=== PATIENT | female | born 1935 | race Caucasian/White ===

== ENCOUNTER 2020-09-09 12:37 | Observation (INO) ==
[2020-09-09 13:37] LABS: Basophils % 0.3 % (0.0-0.8); Eosinophils % 0.4 % (0.00-10.9); Hematocrit 41.4 VOL% (35.7-47.0); Hemoglobin 13.7 GM/DL (12.0-16.0); Immature Granulocytes % 0.4 %; Immature Granulocytes Absolute 0.03 #; Lymphocytes # 1.2 10*3/uL (1.4-4.0); Mean Corpuscular HGB Conc 33.1 GM/DL (32-36); Mean Corpuscular Volume 90.8 FL (87-102); Mean Platelet Volume 10.2 FL (9.6-12.0); Monocytes % 6.2 % (1.7-12.7); Neutrophils % 76.7 % (38.7-73.9); Platelet Count 287 T/CUMM (130-400); Red Blood Count 4.56 MC/CUMM (3.8-5.5); Red Cell Distribution Width 15.1 % (9.3-17.3); White Blood Count 7.3 T/CUMM (4-12)
[2020-09-09 13:48] LABS: Osmolality,Calculated 283.1 MOS/KG (273-304); Potassium 4.5 MMOL/L (3.5-5.1)
[2020-09-09] MEDS ORDERED: LABETALOL 20 MG/4 ML SYRINGE IV PRN (15:30)
[2020-09-09] MEDS ORDERED: GLUCAGON 1 MG VIAL IM PRN (15:35)
[2020-09-09] MEDS ORDERED: DEXTROSE 50% 25 GM/50 ML VIAL IV PRN (15:35)
[2020-09-09] MEDS: ENOXAPARIN 30 MG/0.3 ML SYRINGE SUBCUT SCH (15:47)
[2020-09-09] MEDS: ASPIRIN 325 MG TABLET PO SCH (15:47)
[2020-09-09] MEDS: DISOPYRAMIDE PHOSPHATE 150 MG PO SCH (23:20)
[2020-09-09] MEDS: MAGNESIUM OXIDE 400 MG TABLET PO SCH (23:20)
[2020-09-09] MEDS: PANTOPRAZOLE 40 MG TABLET PO SCH (23:20)
[2020-09-10 06:10] LABS: Basophils % 0.3 % (0.0-0.8); Eosinophils # 0.1 10*3/uL (0.0-0.87); Eosinophils % 1.2 % (0.00-10.9); Hematocrit 39.7 VOL% (35.7-47.0); Hemoglobin 12.8 GM/DL (12.0-16.0); Immature Granulocytes % 0.5 %; Immature Granulocytes Absolute 0.04 #; Lymphocytes # 1.7 10*3/uL (1.4-4.0); Mean Corpuscular HGB Conc 32.2 GM/DL (32-36); Mean Corpuscular Volume 92.3 FL (87-102); Mean Platelet Volume 10.4 FL (9.6-12.0); Monocytes % 8.2 % (1.7-12.7); Neutrophils % 66.8 % (38.7-73.9); Platelet Count 258 T/CUMM (130-400); Red Cell Distribution Width 14.9 % (9.3-17.3); White Blood Count 7.4 T/CUMM (4-12)
[2020-09-10 06:24] LABS: Calcium 8.9 MG/DL (8.5-10.1); Osmolality,Calculated 280.7 MOS/KG (273-304); Potassium 4.1 MMOL/L (3.5-5.1); Risk Ratio 5.39; VLDL CHOLESTEROL 41.4 MG/DL
[2020-09-10] MEDS: LEVOTHYROXINE 25 MCG TABLET PO SCH (07:26)
[2020-09-10] MEDS: PANTOPRAZOLE 40 MG TABLET PO SCH ×2 (09:47→21:04)
[2020-09-10] MEDS: DIGOXIN 0.125 MG TABLET PO SCH (09:47)
[2020-09-10] MEDS: ASPIRIN 325 MG TABLET PO SCH (09:47)
[2020-09-10] MEDS: MAGNESIUM OXIDE 400 MG TABLET PO SCH ×2 (09:47→21:04)
[2020-09-10] MEDS: METOPROLOL SUCCINATE XL 25 MG TABLET PO SCH (09:48)
[2020-09-10] MEDS: DISOPYRAMIDE PHOSPHATE 150 MG PO SCH ×3 (10:47→21:04)
[2020-09-10] MEDS: ENOXAPARIN 30 MG/0.3 ML SYRINGE SUBCUT SCH (15:55)
[2020-09-10] MEDS ORDERED: ROSUVASTATIN 10 MG TABLET PO SCH (21:00)
[2020-09-10] MEDS: OMEGA 3 ACID ETHYL ESTERS 1 GM CAPSULE PO SCH (21:04)
[2020-09-11] MEDS: LEVOTHYROXINE 25 MCG TABLET PO SCH (06:17)
[2020-09-11 06:35] LABS: Calcium 9.2 MG/DL (8.5-10.1); Osmolality,Calculated 280.7 MOS/KG (273-304); Potassium 4.3 MMOL/L (3.5-5.1)
[2020-09-11 06:39] LABS: Alanine Aminotransferase 22 U/L (13-56); Albumin 3.2 G/DL (3.4-5.0); Alkaline Phosphatase 86 U/L (45-117); Aspartate Amino Transferase 21 U/L (0-37); Bilirubin,Direct < 0.100 MG/DL (0.0-0.20); Bilirubin,Indirect 0.3 MG/DL (0.0-1.0); Bilirubin,Total < 0.39 MG/DL (0.2-1.0); Total Protein 7.3 G/DL (6.4-8.2)
[2020-09-11] MEDS ORDERED: CLOPIDOGREL 75 MG TABLET PO SCH (09:00)
[2020-09-11] MEDS ORDERED: GLIMEPIRIDE 2 MG TABLET PO SCH (09:00)
[2020-09-11] MEDS ORDERED: hydroCHLOROthiazide 12.5 MG CAPSULE PO SCH (09:00)
[2020-09-11] MEDS ORDERED: ASPIRIN EC 81 MG TABLET PO SCH (09:00)
[2020-09-11] MEDS: DIGOXIN 0.125 MG TABLET PO SCH (09:16)
[2020-09-11] MEDS: MAGNESIUM OXIDE 400 MG TABLET PO SCH (09:16)
[2020-09-11] MEDS: OMEGA 3 ACID ETHYL ESTERS 1 GM CAPSULE PO SCH (09:16)
[2020-09-11] MEDS: PANTOPRAZOLE 40 MG TABLET PO SCH (09:17)
[2020-09-11] MEDS: METOPROLOL SUCCINATE XL 25 MG TABLET PO SCH (09:17)
[2020-09-11] MEDS: DISOPYRAMIDE PHOSPHATE 150 MG PO SCH (10:16)
[2020-09-11 11:13] VITALS: BP 131/58
== END 2020-09-11 13:51 | disposition home or self-care (01) ==
LOC: N.ED 12:37 → N.EDINP 12:37 → N.3E 21:14
PROVIDERS: ADMIT Hospitalist; ATTEND Hospitalist

== ENCOUNTER 2020-11-14 09:32 | Inpatient (IN) ==
[2020-11-14] MEDS ORDERED: SODIUM CHLORIDE 0.9% 1,000 ML IV STA (10:21)
[2020-11-14] MEDS ORDERED: ONDANSETRON 4 MG/2 ML VIAL IV STA (10:21)
[2020-11-14 10:32] LABS: Basophils % 0.1 % (0.0-0.8); Eosinophils % 0.3 % (0.00-10.9); Hematocrit 20.6 VOL% (35.7-47.0); Immature Granulocytes % 0.4 %; Immature Granulocytes Absolute 0.03 #; Mean Corpuscular Volume 87.7 FL (87-102); Mean Platelet Volume 10.2 FL (9.6-12.0); Monocytes % 5.4 % (1.7-12.7); Neutrophils % 80.8 % (38.7-73.9); Platelet Count 225 T/CUMM (130-400); Red Blood Count 2.35 MC/CUMM (3.8-5.5); Red Cell Distribution Width 14.6 % (9.3-17.3); White Blood Count 7.7 T/CUMM (4-12)
[2020-11-14 10:47] LABS: Alanine Aminotransferase 26 U/L (13-56); Albumin 3.1 G/DL (3.4-5.0); Alkaline Phosphatase 73 U/L (45-117); Amylase 252 U/L (25-115); Aspartate Amino Transferase 33 U/L (0-37); Blood Urea Nitrogen 25 MG/DL (7-18); Calcium 7.7 MG/DL (8.5-10.1); Carbon Dioxide 25 MMOL/L (21-32); Glucose 248 MG/DL (74-106); Osmolality,Calculated 268.1 MOS/KG (273-304); Potassium 4.3 MMOL/L (3.5-5.1); Sodium 128 MMOL/L (136-145); Total Protein 6.2 G/DL (6.4-8.2)
[2020-11-14 10:49] LABS: Estimated Glom Filtration Rate 0 ML/MIN
[2020-11-14] MEDS ORDERED: SODIUM CHLORIDE 0.9% 1,000 ML IV PRN (11:23)
[2020-11-14] MEDS ORDERED: ONDANSETRON 4 MG/2 ML VIAL IV PRN (12:16)
[2020-11-14] MEDS ORDERED: GLUCAGON 1 MG VIAL IM PRN (12:17)
[2020-11-14] MEDS ORDERED: DEXTROSE 50% 25 GM/50 ML VIAL IV PRN (12:17)
[2020-11-14 12:44] LABS: Calcium 7.3 MG/DL (8.5-10.1); Osmolality,Calculated 268.7 MOS/KG (273-304); Potassium 4.5 MMOL/L (3.5-5.1)
[2020-11-14 12:48] LABS: Basophils % 0.2 % (0.0-0.8); Hematocrit 18.3 VOL% (35.7-47.0); Immature Granulocytes % 0.2 %; Immature Granulocytes Absolute 0.01 #; Lymphocytes # 0.8 10*3/uL (1.4-4.0); Lymphocytes % 14.8 % (21.3-54.2); Mean Corpuscular HGB Conc 32.8 GM/DL (32-36); Mean Corpuscular Volume 88.4 FL (87-102); Mean Platelet Volume 10.1 FL (9.6-12.0); Monocytes % 4.2 % (1.7-12.7); Neutrophils % 80.6 % (38.7-73.9); Red Blood Count 2.07 MC/CUMM (3.8-5.5); Red Cell Distribution Width 14.5 % (9.3-17.3); White Blood Count 5.5 T/CUMM (4-12)
[2020-11-14 13:00] LABS: Platelet Count 175 T/CUMM (130-400)
[2020-11-14] MEDS: SODIUM CHLORIDE 0.9% 1,000 ML IV SCH ×2 (14:00→21:43)
[2020-11-14] MEDS: LEVOTHYROXINE 25 MCG TABLET PO SCH (16:17)
[2020-11-14] MEDS: INSULIN LISPRO 100 UNIT/ML SUBCUT SCH (18:13)
[2020-11-14] MEDS: OMEGA 3 ACID ETHYL ESTERS 1 GM CAPSULE PO SCH (21:41)
[2020-11-14] MEDS: MULTIVITAMIN (OCUVITE) TABLET PO SCH (21:41)
[2020-11-14] MEDS: ASPIRIN EC 81 MG TABLET PO SCH (21:41)
[2020-11-14] MEDS: MAGNESIUM OXIDE 400 MG TABLET PO SCH (21:41)
[2020-11-14] MEDS: PANTOPRAZOLE 40 MG TABLET PO SCH (21:41)
[2020-11-14] MEDS: CLOPIDOGREL 75 MG TABLET PO SCH (21:41)
[2020-11-15] MEDS: INSULIN LISPRO 100 UNIT/ML SUBCUT SCH ×4 (00:56→18:40)
[2020-11-15] MEDS: LEVOTHYROXINE 25 MCG TABLET PO SCH (05:58)
[2020-11-15 06:37] LABS: Thyroid Stimulating Hormone 2.88 uIU/ml (0.358-3.74)
[2020-11-15 07:25] LABS: Basophils % 0.2 % (0.0-0.8); Immature Granulocytes % 0.4 %; Immature Granulocytes Absolute 0.02 #; Mean Platelet Volume 10.2 FL (9.6-12.0); Red Cell Distribution Width 15.5 % (9.3-17.3)
[2020-11-15 07:30] LABS: Eosinophils % 0.8 % (0.00-10.9); Hematocrit 24.3 VOL% (35.7-47.0); Lymphocytes # 1.2 10*3/uL (1.4-4.0); Lymphocytes % 23.7 % (21.3-54.2); Mean Corpuscular HGB Conc 33.7 GM/DL (32-36); Mean Corpuscular Volume 85.3 FL (87-102); Monocytes % 7.4 % (1.7-12.7); Neutrophils % 67.5 % (38.7-73.9); Platelet Count 147 T/CUMM (130-400)
[2020-11-15 07:32] LABS: Red Blood Count 2.85 MC/CUMM (3.8-5.5)
[2020-11-15 07:33] LABS: Hemoglobin 8.2 GM/DL (12.0-16.0)
[2020-11-15 08:03] LABS: Calcium 7.1 MG/DL (8.5-10.1); Osmolality,Calculated 272.8 MOS/KG (273-304); Potassium 4.3 MMOL/L (3.5-5.1)
[2020-11-15] MEDS: METOPROLOL SUCCINATE XL 25 MG TABLET PO SCH (09:01)
[2020-11-15] MEDS: DIGOXIN 0.125 MG TABLET PO SCH (09:03)
[2020-11-15] MEDS: MAGNESIUM OXIDE 400 MG TABLET PO SCH ×2 (09:05→20:36)
[2020-11-15] MEDS: CETIRIZINE 10 MG TABLET PO SCH (09:05)
[2020-11-15] MEDS: MULTIVITAMIN (OCUVITE) TABLET PO SCH ×2 (09:05→20:37)
[2020-11-15] MEDS: ASPIRIN EC 81 MG TABLET PO SCH ×2 (09:05→20:37)
[2020-11-15] MEDS: MULTIVITAMIN (BEROCCA) TABLET PO SCH (09:05)
[2020-11-15] MEDS: OMEGA 3 ACID ETHYL ESTERS 1 GM CAPSULE PO SCH ×2 (09:05→20:36)
[2020-11-15] MEDS: CYANOCOBALAMIN 500 MCG TABLET PO SCH (09:06)
[2020-11-15] MEDS: PANTOPRAZOLE 40 MG TABLET PO SCH ×2 (09:06→20:36)
[2020-11-15] MEDS: SODIUM CHLORIDE 0.9% 1,000 ML IV SCH (18:41)
[2020-11-15] MEDS: CLOPIDOGREL 75 MG TABLET PO SCH (20:36)
[2020-11-16] MEDS: INSULIN LISPRO 100 UNIT/ML SUBCUT SCH ×4 (00:30→19:09)
[2020-11-16 04:28] LABS: Basophils % 0.4 % (0.0-0.8); Eosinophils # 0.1 10*3/uL (0.0-0.87); Hemoglobin 8.1 GM/DL (12.0-16.0); Immature Granulocytes % 0.2 %; Immature Granulocytes Absolute 0.01 #; Lymphocytes # 1.7 10*3/uL (1.4-4.0); Lymphocytes % 36.7 % (21.3-54.2); Mean Corpuscular HGB Conc 32.4 GM/DL (32-36); Mean Corpuscular Volume 89.6 FL (87-102); Mean Platelet Volume 9.9 FL (9.6-12.0); Neutrophils % 52.7 % (38.7-73.9); Platelet Count 151 T/CUMM (130-400); Red Blood Count 2.79 MC/CUMM (3.8-5.5); Red Cell Distribution Width 15.9 % (9.3-17.3); White Blood Count 4.6 T/CUMM (4-12)
[2020-11-16 05:09] LABS: Calcium 7.2 MG/DL (8.5-10.1); Potassium 3.8 MMOL/L (3.5-5.1)
[2020-11-16] MEDS: LEVOTHYROXINE 25 MCG TABLET PO SCH (06:00)
[2020-11-16] MEDS: CYANOCOBALAMIN 500 MCG TABLET PO SCH (09:15)
[2020-11-16] MEDS: CETIRIZINE 10 MG TABLET PO SCH (09:15)
[2020-11-16] MEDS: DIGOXIN 0.125 MG TABLET PO SCH (09:15)
[2020-11-16] MEDS: METOPROLOL SUCCINATE XL 25 MG TABLET PO SCH (09:15)
[2020-11-16] MEDS: ASPIRIN EC 81 MG TABLET PO SCH ×2 (09:15→20:21)
[2020-11-16] MEDS: MAGNESIUM OXIDE 400 MG TABLET PO SCH ×2 (09:16→20:21)
[2020-11-16] MEDS: MULTIVITAMIN (BEROCCA) TABLET PO SCH (09:16)
[2020-11-16] MEDS: OMEGA 3 ACID ETHYL ESTERS 1 GM CAPSULE PO SCH ×2 (09:17→20:21)
[2020-11-16] MEDS: PANTOPRAZOLE 40 MG TABLET PO SCH ×2 (09:18→20:21)
[2020-11-16] MEDS: MULTIVITAMIN (OCUVITE) TABLET PO SCH ×2 (09:18→20:21)
[2020-11-16] MEDS: CLOPIDOGREL 75 MG TABLET PO SCH (20:21)
[2020-11-16] MEDS: SODIUM CHLORIDE 0.9% 1,000 ML IV SCH (20:24)
[2020-11-17] MEDS: INSULIN LISPRO 100 UNIT/ML SUBCUT SCH ×4 (00:31→18:04)
[2020-11-17 05:06] LABS: Basophils % 0.2 % (0.0-0.8); Eosinophils # 0.1 10*3/uL (0.0-0.87); Eosinophils % 2.5 % (0.00-10.9); Hematocrit 24.3 VOL% (35.7-47.0); Hemoglobin 8.2 GM/DL (12.0-16.0); Immature Granulocytes % 0.2 %; Immature Granulocytes Absolute 0.01 #; Lymphocytes # 1.3 10*3/uL (1.4-4.0); Lymphocytes % 28.7 % (21.3-54.2); Mean Corpuscular HGB Conc 33.7 GM/DL (32-36); Mean Corpuscular Volume 87.7 FL (87-102); Mean Platelet Volume 9.8 FL (9.6-12.0); Monocytes % 7.6 % (1.7-12.7); Neutrophils % 60.8 % (38.7-73.9); Platelet Count 150 T/CUMM (130-400); Red Blood Count 2.77 MC/CUMM (3.8-5.5); Red Cell Distribution Width 15.4 % (9.3-17.3); White Blood Count 4.5 T/CUMM (4-12)
[2020-11-17 05:25] LABS: Calcium 7.5 MG/DL (8.5-10.1); Potassium 3.8 MMOL/L (3.5-5.1)
[2020-11-17] MEDS: LEVOTHYROXINE 25 MCG TABLET PO SCH (06:31)
[2020-11-17] MEDS: SODIUM CHLORIDE 0.9% 1,000 ML IV SCH (07:10)
[2020-11-17] MEDS: MULTIVITAMIN (BEROCCA) TABLET PO SCH (08:41)
[2020-11-17] MEDS: DIGOXIN 0.125 MG TABLET PO SCH (08:41)
[2020-11-17] MEDS: OMEGA 3 ACID ETHYL ESTERS 1 GM CAPSULE PO SCH ×2 (08:42→21:24)
[2020-11-17] MEDS: MAGNESIUM OXIDE 400 MG TABLET PO SCH ×2 (08:42→21:24)
[2020-11-17] MEDS: CYANOCOBALAMIN 500 MCG TABLET PO SCH (08:42)
[2020-11-17] MEDS: MULTIVITAMIN (OCUVITE) TABLET PO SCH ×2 (08:42→21:24)
[2020-11-17] MEDS: CETIRIZINE 10 MG TABLET PO SCH (08:42)
[2020-11-17] MEDS: METOPROLOL SUCCINATE XL 25 MG TABLET PO SCH (08:42)
[2020-11-17] MEDS: PANTOPRAZOLE 40 MG TABLET PO SCH ×2 (08:42→21:24)
[2020-11-17] MEDS: ASPIRIN EC 81 MG TABLET PO SCH ×2 (08:43→21:24)
[2020-11-18] MEDS: INSULIN LISPRO 100 UNIT/ML SUBCUT SCH ×3 (00:07→11:07)
[2020-11-18] MEDS: SODIUM CHLORIDE 0.9% 1,000 ML IV SCH (02:51)
[2020-11-18 05:37] LABS: Basophils % 0.5 % (0.0-0.8); Eosinophils # 0.1 10*3/uL (0.0-0.87); Eosinophils % 2.3 % (0.00-10.9); Hematocrit 24.3 VOL% (35.7-47.0); Hemoglobin 7.8 GM/DL (12.0-16.0); Immature Granulocytes % 0.2 %; Immature Granulocytes Absolute 0.01 #; Lymphocytes # 1.2 10*3/uL (1.4-4.0); Lymphocytes % 26.9 % (21.3-54.2); Mean Corpuscular HGB Conc 32.1 GM/DL (32-36); Mean Corpuscular Volume 89.3 FL (87-102); Mean Platelet Volume 9.7 FL (9.6-12.0); Monocytes % 7.7 % (1.7-12.7); Neutrophils % 62.4 % (38.7-73.9); Platelet Count 160 T/CUMM (130-400); Red Blood Count 2.72 MC/CUMM (3.8-5.5); Red Cell Distribution Width 15.6 % (9.3-17.3); White Blood Count 4.4 T/CUMM (4-12)
[2020-11-18 06:02] LABS: Calcium 7.5 MG/DL (8.5-10.1); Potassium 3.7 MMOL/L (3.5-5.1)
[2020-11-18 06:07] LABS: Hypochromasia 1+; Microcytosis 1+; Platelet Estimate Adequate
[2020-11-18] MEDS: LEVOTHYROXINE 25 MCG TABLET PO SCH (06:36)
[2020-11-18] MEDS: MULTIVITAMIN (BEROCCA) TABLET PO SCH (08:13)
[2020-11-18] MEDS: MAGNESIUM OXIDE 400 MG TABLET PO SCH (08:13)
[2020-11-18] MEDS: MULTIVITAMIN (OCUVITE) TABLET PO SCH (08:13)
[2020-11-18] MEDS: OMEGA 3 ACID ETHYL ESTERS 1 GM CAPSULE PO SCH (08:13)
[2020-11-18] MEDS: ASPIRIN EC 81 MG TABLET PO SCH (08:13)
[2020-11-18] MEDS: PANTOPRAZOLE 40 MG TABLET PO SCH (08:13)
[2020-11-18] MEDS: CYANOCOBALAMIN 500 MCG TABLET PO SCH (08:13)
[2020-11-18] MEDS: CETIRIZINE 10 MG TABLET PO SCH (08:14)
[2020-11-18] MEDS: DIGOXIN 0.125 MG TABLET PO SCH (08:14)
[2020-11-18] MEDS: METOPROLOL SUCCINATE XL 25 MG TABLET PO SCH (08:14)
[2020-11-18] MEDS ORDERED: SODIUM CHLORIDE 0.9% 1,000 ML IV PRN (09:18)
[2020-11-18 15:39] VITALS: BP 133/65
== END 2020-11-18 16:10 | disposition home or self-care (01) | DRG 812 ==
LOC: N.ED 09:32 → N.4E 12:58 → SUATTDRO 12:58 → N.4E 14:18
PROVIDERS: ADMIT Internal Medicine; ATTEND Internal Medicine